=== PATIENT | male | born 1940 | race Caucasian/White ===

== ENCOUNTER 2018-04-20 09:25 | Day surgery (SDC) | payer MEDICARE, BC ==
[~2018-04-20 09:25] MED LIST: Albuterol 0.083% 2.5 MG/3 ML Neb Soln NEB ONE; Bisacodyl 5 MG Tab PO PRN; Cyclobenzaprine 10 MG Tab PO PRN; EPINEPHrine 1 MG/ML SDV ONE; Ketorolac 15 MG/ML SDV IVPUSH PRN; Lactated Ringers 1,000 ML IV SCH; Lidocaine 1%/Sod Bicarbonate in NS 8.4% 1 ML Syringe IDERM PRN; Magnesium Hydroxide 400 MG/5 ML Susp 30 ML Cup PO PRN; Morphine 2 MG/ML Syringe IVPUSH PRN; Naloxone 0.4 MG/ML SDV IVPUSH PRN; Ondansetron 4 MG/2 ML SDV IVPUSH PRN; Ropivacaine 0.5% 5 MG/ML 30 ML SDV ONE; Scopolamine 1.5 MG Transdermal Patch TRDERM ONE; Sennosides 8.6 MG Tab PO PRN; Sodium Chloride 0.9% 10 ML Syringe FLUSH PRN
[2018-04-20] MEDS ORDERED: Albuterol 0.083% 2.5 MG/3 ML Neb Soln NEB ONE (10:21)
[2018-04-20] MEDS ORDERED: Albuterol 0.083% 2.5 MG/3 ML Neb Soln ONE (10:23)
--- NOTE | 2018-04-20 10:52 | PCM.PREANE ---
Preanesthetic Assessment - Procedure Proposed Procedure: L TKR with right knee cortisone injection - Anesthesia/Transfusion/Family Hx Anesthesia History: Prior Anesthesia Without Reaction Type of Anesthesia Reaction: Excessive Nausea/Vomiting Family History of Anesthesia Reaction: No Transfusion History: No Prior Transfusion(s) - Review of Systems General: No Symptoms Pulmonary: Shortness of Breath (with exertion ), Other (patient denies asthma, does not use an inhaler ) Cardiovascular: Other (HTN, Mild aortic stenosis, ) Gastrointestinal: Other (patient denies GERD ) Neurological: No Symptoms Other: Reports: None - Physical Assessment NPO Status Date: 04/20/18 NPO Status Time: 00:00 O2 Sat by Pulse Oximetry: 95 Respiratory Rate: 20 Vital Signs: Last Vital Signs Temp 36.4 C 04/20/18 09:40 Pulse 66 04/20/18 09:40 Resp 20 04/20/18 09:40 BP 154/74 H 04/20/18 09:40 Pulse Ox 95 04/20/18 09:40 Height: 1.6 m Weight: 73.028 kg ASA Class: 3 Mental Status: Alert & Oriented x3 Airway Class: Mallampati = 1 Dentition: Reports: Missing Tooth/Teeth (multiple missing teeth ) Thyro-Mental Finger Breadths: 3 Mouth Opening Finger Breadths: 3 ROM/Head Extension: Full Lungs: Clear to Auscultation, Normal Respiratory Effort Cardiovascular: Regular Rate, Regular Rhythm - Imaging/EKG Impressions: ECHO results from an echo completed in 03-19-16 Mild aortic stenosis with valve area 1.9cm2 (VMax 2.5m/sec) Left ventricular hypertrophy Mild diastolic dysfunction Pt has a noticeable heart murmer but is for the most part asymptomatic. He does not have a more noticeable SOB with exertion within the last couple years. I recommended the patient should follow up with a technical sales representative to keep an eye on his aortic stenosis postoperatively. - Allergies Allergies/Adverse Reactions: Allergies Allergy/AdvReac Type Severity Reaction Status Date / Time No Known Allergies Allergy Verified 04/20/18 11:02 - Blood Blood Available: No Product(s) Available: None - Anesthesia Plan Pre-Op Medication Ordered: None - Acknowledgements Anesthesia Type Planned: Spinal (with post operative adductor canal block ) Pt an Appropriate Candidate for the Planned Anesthesia: Yes Alternatives and Risks of Anesthesia Discussed w Pt/Guardian: Yes Pt/Guardian Understands and Agrees with Anesthesia Plan: Yes PreAnesthesia Questionnaire HEENT History: Reports: None Cardiovascular History: Reports: Heart Murmur, High Cholesterol, Hypertension, Other (See Below) Other Cardiovascular History: aortic stenosis, diastolic dysfunction Respiratory History: Reports: Asthma Gastrointestinal History: Reports: GERD Genitourinary History: Reports: BPH, Other (See Below) Other Genitourinary History: OAB 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: Reports: None Musculoskeletal History: Reports: Osteoarthritis Neurological History: Reports: Neuropathy, Peripheral Psychiatric History: Reports: Other (See Below) Other Psychiatric History: insomnia Endocrine/Metabolic History: Reports: Obesity/BMI 30+ Hematologic History: Reports: None Immunologic History: Reports: None Oncologic (Cancer) History: Reports: Prostate Dermatologic History: Reports: None, Other (See Below) Other Dermatologic History: ingrown toenail, skin lesion to left ear, right toe abcess, paronychia, onchomycosis - Past Surgical History Head Surgeries/Procedures: Reports: None HEENT Surgical History: Reports: None Cardiovascular Surgical History: Reports: None Respiratory Surgical History: Reports: None GI Surgical History: Reports: Colonoscopy Male Surgical History: Reports: Prostatectomy Endocrine Surgical History: Reports: None Musculoskeletal Surgical History: Reports: Arthroscopic Knee, Shoulder Replacement Oncologic Surgical History: Reports: None Dermatological Surgical History: Reports: None - SUBSTANCE USE Smoking Status *Q: Former Smoker Recreational Drug Use History: No - HOME MEDS Home Medications: Home Meds Albuterol Sulfate [Proair Hfa] 2 puff INH Q6H PRN 04/19/18 [History] Aspirin [Adult Low Dose Aspirin EC] 81 mg PO DAILY 04/19/18 [History] Docusate Sodium [Stool Softener] 100 mg PO BID 04/19/18 [History] Ibuprofen 400 mg PO Q6H PRN 04/19/18 [History] Losartan/Hydrochlorothiazide [Losartan-HCTZ 100-25 MG] 1 tab PO DAILY 04/19/18 [ History] Mirabegron [Myrbetriq] 25 mg PO DAILY 04/19/18 [History] Omeprazole 20 mg PO DAILY 04/19/18 [History] Simvastatin 10 mg PO DAILY 04/19/18 [History] amLODIPine Besylate [Amlodipine Besylate] 5 mg PO DAILY 04/19/18 [History] guaiFENesin [Mucinex] 600 mg PO BID PRN 04/19/18 [History] traZODone HCl [Trazodone HCl] 150 mg PO BEDTIME 04/19/18 [History] - CURRENT (IN HOUSE) MEDS Current Meds: Current Medications Aspirin (Ecotrin) 325 mg PO BID DANDRE Bisacodyl (Dulcolax) 5 mg PO DAILY PRN PRN Reason: Constipation Morphine Sulfate 8 mg/Epinephrine HCl 0.3 mg/Cefuroxime Sodium 750 mg/Ketorolac Tromethamine 30 mg/Sodium Chloride 27.9 ml 0 mg .XX ONETIME ONE Stop: 04/20/18 11:01 Cyclobenzaprine HCl (Flexeril) 10 mg PO TID PRN PRN Reason: Spasms Docusate Sodium (Colace) 100 mg PO BID [facility] Lactated Ringer's (Ringers, Lactated) 1,000 mls @ 125 mls/hr IV ASDIRECTED [facility] Stop: 04/20/18 23:00 Last Admin: 04/20/18 09:50 Dose: 125 mls/hr Cefazolin Sodium/Dextrose 2 gm (/ Premix) 50 mls @ 100 mls/hr IV Q8H [facility] Stop: 04/21/18 00:14 Ketorolac Tromethamine (Toradol) 15 mg IVPUSH Q6H PRN PRN Reason: Pain Lidocaine/Sodium Bicarbonate (Buffered Lidocaine 1% In Ns 8.4%) 0.25 ml IDERM ONETIME PRN PRN Reason: Prior to IV Start Stop: 04/20/18 18:00 Magnesium Hydroxide (Milk Of Magnesia) 30 ml PO BID PRN PRN Reason: Constipation Morphine Sulfate (Morphine) 2 mg IVPUSH Q2H PRN PRN Reason: Breakthrough Pain Naloxone HCl (Narcan) 0.1 mg IVPUSH Q5M PRN PRN Reason: Oversedation Ondansetron HCl (Zofran) 4 mg IVPUSH Q6H PRN PRN Reason: Nausea/Vomiting Oxycodone/Acetaminophen (Percocet 325-5 Mg) 1 - 2 tab PO Q4H PRN PRN Reason: Pain Senna (Senna) 8.6 mg PO BID PRN PRN Reason: Constipation Sodium Chloride (Saline Flush) 10 ml FLUSH ASDIRECTED PRN PRN Reason: Keep Vein Open Stop: 04/20/18 18:00 Discontinued Medications Albuterol (Proventil Neb Soln) 2.5 mg NEB ONETIME ONE Stop: 04/20/18 08:01 Last Admin: 04/20/18 10:25 Dose: 2.5 mg Albuterol (Proventil Neb Soln) 2.5 mg NEB ONETIME ONE Stop: 04/20/18 10:22 Albuterol (Proventil Neb Soln) Confirm Administered Dose 2.5 mg .ROUTE .STK-MED ONE Stop: 04/20/18 10:24 Epinephrine HCl (Adrenalin) Confirm Administered Dose 1 mg .ROUTE .STK-MED ONE Stop: 04/20/18 07:24 Ropivacaine (Naropin 0.5%) Confirm Administered Dose 30 ml .ROUTE .STK-MED ONE Stop: 04/20/18 07:24 Scopolamine (Transderm-Scop) 1.5 mg TRDERM ONETIME ONE Stop: 04/20/18 08:01 Last Admin: 04/20/18 10:00 Dose: 1.5 mg
[2018-04-20] MEDS ORDERED: Bupivacaine 0.75% 30 ML SDV ONE (12:12)
[2018-04-20] MEDS ORDERED: Midazolam 1 MG/ML 2 ML SDV ONE (12:13)
[2018-04-20] MEDS ORDERED: ceFAZolin 1 GM Vial ONE (12:23)
[2018-04-20] MEDS ORDERED: Lactated Ringers 1,000 ML ONE (12:41)
[2018-04-20] MEDS: ceFAZolin 1 GM Vial ONE ×2 (12:47→13:09)
[2018-04-20] MEDS: Iodine/Sodium Iodide 2% Tincture 30 ML Bottle ONE ×2 (12:47→13:05)
[2018-04-20] MEDS: Bupivacaine 0.25% 30 ML SDV ONE ×5 (12:48→13:34)
[2018-04-20] MEDS: Morphine 8 MG, EPINEPHrine 0.3 MG, Cefuroxime 750 MG, Ketorolac 30 MG, Sodium Chloride ... ONE ×10 (12:49→13:12)
[2018-04-20] MEDS: Vancomycin 1 GM SDV ONE ×2 (12:49→13:15)
[2018-04-20] MEDS: Triamcinolone Acetonide 40 MG/ML 1 ML MDV ONE ×3 (12:50→13:34)
[2018-04-20] MEDS ORDERED: Propofol 200 MG/20 ML SDV ONE (12:52)
--- NOTE | 2018-04-20 14:21 | PCM.POSTAN ---
POST ANESTHESIA ASSESSMENT - MENTAL STATUS Mental Status: Alert, Oriented - VITAL SIGNS Pulse Rate: 75 SaO2: 95 Resp Rate: 17 Blood Pressure: 129/63 Temperature: 98.2 F - RESPIRATORY Respiratory Status: Respiratory Rate WNL, Airway Patent, O2 Saturation Stable, Supplemental Oxygen - CARDIOVASCULAR CV Status: Pulse Rate WNL, Blood Pressure Stable - GASTROINTESTINAL GI Status: No Symptoms - PAIN Pain Score: 0 - POST OP HYDRATION Hydration Status: Adequate & Stable
--- NOTE | 2018-04-20 14:31 | PCM.PRNOTE ---
- Free Text/Narrative Note: Postoperative regional pain control requested by surgeon.[REGIONAL BLOCK] Pre-op Dx: Lt knee osteoarthritis. Surgical Procedure: Lt Total knee arthroplasty. Postoperative procedure: Lt Adductor canal nerve Block at with U/S guidance. Risks and benefits discussed with the patient preoperatively, including Left leg weakness x 24 hrs., block failure. Permit signed. Patient was under spinal block post surgery, awake and stable. Left upper leg above the knee groin was prepped with Chloraprep x 1 and allowed to dry. Time out performed. Under aseptic technique, the left sartorius muscle and femoral ( saphenous) artery were identified under ultrasound prior to needle insertion. 4 " Stimuplex needle #22 G was inserted under US guidance. Under direct visualization of needle tip the injection of 0.5% Ropivacaine with 150 mcg of epinephrine total of 30 mls in divided doses maintaining negative aspiration was completed without problems. Patient has had tolerated the procedure well. No local anesthetic toxicity was noted. Please see attached Ultrasound images. Beginning time: 13:57 End time: 14:05 Kahlil Porter CRNA
--- NOTE | 2018-04-20 15:00 | CR ---
Left knee: AP and lateral views of the left knee were obtained. Comparison: No previous study. Knee prosthesis is seen. Components are aligned. Soft tissue air is seen. Underlying bony structures are intact. Impression: 1. Satisfactory postop radiographic appearance of recently placed left knee prosthesis. Diagnostic code #1
[2018-04-20] MEDS ORDERED: Albuterol 6.7 GM Inhaler INH PRN (15:32)
[2018-04-20] MEDS ORDERED: Docusate Sodium 100 MG Cap PO SCH ×2 (21:00)
[2018-04-20] MEDS ORDERED: traZODone 50 MG Tab PO SCH (21:00)
[2018-04-20] MEDS ORDERED: Simvastatin 10 MG Tab PO SCH (21:00)
[2018-04-20] MEDS: ceFAZolin 2 GM in Premix Bag 1 BAG IV SCH (21:14)
[2018-04-21] MEDS: ceFAZolin 2 GM in Premix Bag 1 BAG IV SCH ×2 (05:41→11:40)
[2018-04-21] MEDS: Acetaminophen/oxyCODONE 325-5 MG Tab PO PRN ×2 (05:58→11:41)
[2018-04-21] MEDS ORDERED: Omeprazole 20 MG Cap.CR PO SCH (06:00)
[2018-04-21] MEDS ORDERED: Pantoprazole 40 MG Tab.CR PO SCH (07:00)
--- NOTE | 2018-04-21 07:29 | PCM.CONS ---
H&P History of Present Illness - General Date of Service: 04/21/18 Admit Problem/Dx: Admission Diagnosis/Problem Admission Diagnosis/Problem Osteoarthritis of knee Source of Information: Patient, Old Records, Provider, RN, RN Notes Reviewed, Other (Surgical notes ) - History of Present Illness Initial Comments - Free Text/Narative: Julien Cole is a 77 yo male patient of Dr. Jacob who is post-operative day 1 of Left TKA and right cortisone injection. Hospital medicine was consulted for post-operative medical care. At this time he is resting comfortably in bed. Pain is controlled. He denies any chest pain, shortness of breath, palpitations , nausea, or vomiting. He carries a history of: Heart murmur, HLD, HTN, Aortic stenosis, Diastolic dysfunction, asthma, GERD, BPH, OAB, Osteoarthritis, periphreal neuropathy, insomnia, obesity, Hx/o prostate cancer. He is a former smoker. He is a full code. His primary care provider is Dr. Macdonald. - Related Data Allergies/Adverse Reactions: Allergies Allergy/AdvReac Type Severity Reaction Status Date / Time No Known Allergies Allergy Verified 04/20/18 15:21 Home Medications: Home Meds Albuterol Sulfate [Proair Hfa] 2 puff INH Q6H PRN 04/19/18 [History] Docusate Sodium [Stool Softener] 100 mg PO BID 04/19/18 [History] Losartan/Hydrochlorothiazide [Losartan-HCTZ 100-25 MG] 1 tab PO DAILY 04/19/18 [ History] Mirabegron [Myrbetriq] 25 mg PO DAILY 04/19/18 [History] Omeprazole 20 mg PO DAILY 04/19/18 [History] Simvastatin 10 mg PO DAILY 04/19/18 [History] amLODIPine Besylate [Amlodipine Besylate] 5 mg PO DAILY 04/19/18 [History] guaiFENesin [Mucinex] 600 mg PO BID PRN 04/19/18 [History] traZODone HCl [Trazodone HCl] 150 mg PO BEDTIME 04/19/18 [History] Acetaminophen/oxyCODONE [Percocet 325-5 MG] 1 - 2 tab PO Q6H PRN #60 tablet [Rx] Aspirin [Ecotrin] 325 mg PO BID #84 tab.ec 04/21/18 [Rx] Bisacodyl [Dulcolax] 5 mg PO DAILY PRN tablet 04/21/18 [Rx] Magnesium Hydroxide [Milk of Magnesia] 30 ml PO BID PRN cup 04/21/18 [Rx] Sennosides [Senna] 8.6 mg PO BID PRN tablet 04/21/18 [Rx] Past Medical History HEENT History: Reports: None Cardiovascular History: Reports: Heart Murmur, High Cholesterol, Hypertension, Other (See Below) Other Cardiovascular History: aortic stenosis, diastolic dysfunction Respiratory History: Reports: Asthma Gastrointestinal History: Reports: GERD Genitourinary History: Reports: BPH, Other (See Below) Other Genitourinary History: OAB 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: 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 Musculoskeletal History: Reports: Osteoarthritis Neurological History: Reports: Neuropathy, Peripheral Psychiatric History: Reports: Other (See Below) Other Psychiatric History: insomnia Endocrine/Metabolic History: Reports: Obesity/BMI 30+ Hematologic History: Reports: None Immunologic History: Reports: None Oncologic (Cancer) History: Reports: Prostate Dermatologic History: Reports: None, Other (See Below) Other Dermatologic History: ingrown toenail, skin lesion to left ear, right toe abcess, paronychia, onchomycosis - Past Surgical History Head Surgeries/Procedures: Reports: None HEENT Surgical History: Reports: None Cardiovascular Surgical History: Reports: None Respiratory Surgical History: Reports: None GI Surgical History: Reports: Colonoscopy Male Surgical History: Reports: Prostatectomy Endocrine Surgical History: Reports: None Musculoskeletal Surgical History: Reports: Arthroscopic Knee, Shoulder Replacement Oncologic Surgical History: Reports: None Dermatological Surgical History: Reports: None Social & Family History - Tobacco Use Smoking Status *Q: Former Smoker Used Tobacco, but Quit: Yes Month/Year Tobacco Last Used: 1982 - Caffeine Use Caffeine Use: Reports: Coffee, Soda - Recreational Drug Use Recreational Drug Use: No Drug Use in Last 12 Months: No H&P Review of Systems - Review of Systems: Review Of Systems: See Below General: Reports: No Symptoms HEENT: Reports: No Symptoms Pulmonary: Reports: No Symptoms Cardiovascular: Reports: No Symptoms Gastrointestinal: Reports: No Symptoms Genitourinary: Reports: No Symptoms Musculoskeletal: Reports: Joint Pain (left knee) Skin: Reports: No Symptoms Psychiatric: Reports: No Symptoms Neurological: Reports: No Symptoms Hematologic/Lymphatic: Reports: No Symptoms Immunologic: Reports: No Symptoms Exam - Exam Exam: See Below - Vital Signs Vital Signs: Last Vital Signs Temp 98.8 F 04/21/18 04:00 Pulse 86 04/21/18 04:00 Resp 20 04/21/18 04:00 BP 104/72 04/21/18 04:00 Pulse Ox 97 04/21/18 04:00 Weight: 161 lb - Exam Quality Assessment: DVT Prophylaxis. No: Supplemental Oxygen, Urinary Catheter General: Alert, Oriented, Cooperative. No: Mild Distress HEENT: Conjunctiva Clear, EACs Clear, EOMI, Hearing Intact, Mucosa Moist & [place] , Nares Patent, Normal Nasal Septum, Posterior Pharynx Clear, PERRLA Neck: Supple, Trachea Midline Lungs: Clear to Auscultation, Normal Respiratory Effort Cardiovascular: Regular Rate, Regular Rhythm, Systolic Murmur GI/Abdominal Exam: Normal Bowel Sounds, Soft, Non-Tender, No Distention, No Abnormal Bruit (Male) Exam: Deferred Rectal (Males) Exam: Deferred Back Exam: Normal Inspection, Full Range of Motion Extremities: No Pedal Edema, Normal Capillary Refill, Leg Pain, Limited Range of Motion, Other (Bandage in place on left knee. Bandage is dry and intact. Cooling pack in place ) Peripheral Pulses: 2+: Radial (L), Radial (R), Dorsalis Pedis (L), Dorsalis Pedis (R) Skin: Warm, Dry, Intact Neurological: Cranial Nerves Intact (grossly) Neuro Extensive - Mental Status: Alert, Oriented x3, Normal Mood/Affect, Normal Cognition, Memory Intact - Patient Data Lab Results Last 24 hrs: Laboratory Results - last 24 hr 04/21/18 04/21/18 Range/Units 06:15 06:15 WBC 8.02 (4.23-9.07) K/mm3 RBC 4.44 L (4.63-6.08) M/mm3 Hgb 13.1 L (13.7-17.5) gm/L Hct 39.6 L (40.1-51.0) % MCV 89.2 (79.0-92.2) fl MCH 29.5 (25.7-32.2) pg MCHC 33.1 (32.2-35.5) g/dl RDW Std Deviation 43.1 (35.1-43.9) fL Plt Count 209 (163-337) K/mm3 MPV 10.4 (9.4-12.3) fl Sodium 140 (136-145) mEq/L Potassium 3.7 (3.5-5.1) mEq/L Chloride 104 (98-107) mEq/L Carbon Dioxide 26 (21-32) mEq/L Anion Gap 13.7 (5-15) BUN 18 (7-18) mg/dL Creatinine 0.9 (0.7-1.3) mg/dL Est Cr Clr Drug Dosing 56.20 mL/min Estimated GFR (MDRD) > 60 (>60) mL/min BUN/Creatinine Ratio 20.0 H (14-18) Glucose 118 H (83-115) mg/dL Calcium 8.2 L (8.5-10.1) mg/dL Total Bilirubin 0.7 (0.2-1.0) mg/dL AST 21 (15-37) U/L ALT 21 (16-63) U/L Alkaline Phosphatase 47 (46-116) U/L Total Protein 5.7 L (6.4-8.2) g/dl Albumin 3.0 L (3.4-5.0) g/dl Globulin 2.7 gm/dL Albumin/Globulin Ratio 1.1 (1-2) Result Diagrams: 04/21/18 06:15 04/21/18 06:15 Consult PN Assessment/Plan POD#: 1 (1) S/P total knee arthroplasty SNOMED Code(s): 5292876365468, 855440550, 1936960937859 Code(s): Z96.659 - PRESENCE OF UNSPECIFIED ARTIFICIAL KNEE JOINT Priority: High Current Visit: Yes Qualifiers: Laterality: left Qualified Code(s): Z96.652 - Presence of left artificial knee joint (2) Osteoarthritis SNOMED Code(s): 556167500 Code(s): M19.90 - UNSPECIFIED OSTEOARTHRITIS, UNSPECIFIED SITE Priority: High Current Visit: Yes Qualifiers: Osteoarthritis location: knee Osteoarthritis type: primary Laterality: bilateral Qualified Code(s): M17.0 - Bilateral primary osteoarthritis of knee (3) Osteopenia SNOMED Code(s): 742809160 Code(s): M85.80 - OTH DISRD OF BONE DENSITY AND STRUCTURE, UNSPECIFIED SITE Priority: High Current Visit: Yes Qualifiers: Osteopenia location: unspecified Qualified Code(s): M85.80 - Other specified disorders of bone density and structure, unspecified site (4) HTN (hypertension) SNOMED Code(s): 20390826 Code(s): I10 - ESSENTIAL (PRIMARY) HYPERTENSION Priority: Medium Current Visit: No Qualifiers: Hypertension type: unspecified Qualified Code(s): I10 - Essential (primary ) hypertension (5) Aortic stenosis SNOMED Code(s): 00883995 Code(s): I35.0 - NONRHEUMATIC AORTIC (VALVE) STENOSIS Priority: Medium Current Visit: No Qualifiers: Cardiac valve disease etiology: etiology unspecified Qualified Code(s): I35.0 - Nonrheumatic aortic (valve) stenosis (6) Neuropathy SNOMED Code(s): 374237500 Code(s): G62.9 - POLYNEUROPATHY, UNSPECIFIED Priority: Medium Current Visit: No (7) S/P prostatectomy SNOMED Code(s): 125139483, 64568047, 850509293 Code(s): Z90.79 - ACQUIRED ABSENCE OF OTHER GENITAL ORGAN(S) Priority: Medium Current Visit: No (8) Insomnia SNOMED Code(s): 305436347 Code(s): G47.00 - INSOMNIA, UNSPECIFIED Priority: Medium Current Visit: No Qualifiers: Insomnia type: unspecified Qualified Code(s): G47.00 - Insomnia, unspecified (9) History of prostate cancer SNOMED Code(s): 234877363 Code(s): Z85.46 - PERSONAL HISTORY OF MALIGNANT NEOPLASM OF PROSTATE Priority: Low Current Visit: No (10) GERD (gastroesophageal reflux disease) SNOMED Code(s): 456694813 Code(s): K21.9 - GASTRO-ESOPHAGEAL REFLUX DISEASE WITHOUT ESOPHAGITIS Priority: Medium Current Visit: No Qualifiers: Esophagitis presence: esophagitis presence not specified Qualified Code(s) : K21.9 - Gastro-esophageal reflux disease without esophagitis (11) HLD (hyperlipidemia) SNOMED Code(s): 97345626 Code(s): E78.5 - HYPERLIPIDEMIA, UNSPECIFIED Priority: Low Current Visit : No Qualifiers: Hyperlipidemia type: unspecified Qualified Code(s): E78.5 - Hyperlipidemia , unspecified (12) Asthma SNOMED Code(s): 238326955 Code(s): J45.909 - UNSPECIFIED ASTHMA, UNCOMPLICATED Priority: Medium Current Visit: No Qualifiers: Asthma severity: unspecified severity Asthma persistence: unspecified Asthma complication type: unspecified Qualified Code(s): J45.909 - Unspecified asthma, uncomplicated (13) OAB (overactive bladder) SNOMED Code(s): 294341540 Code(s): N32.81 - OVERACTIVE BLADDER Priority: Medium Current Visit: No Problem List Initiated/Reviewed/Updated: Yes Plan: I/P: Acute: S/P Left total knee arthroplasty - post-operative day 1 -DVT prophylaxis and pain management per primary care team -PT/OT -IS/RT -Monitor oxygen saturation -Titrate oxygen as needed -Vital signs stable -Monitor labs -Pre-operative Hgb was 14.6, now 13.1 -Pre-operative GFR was 62, now >60 Osteoarthritis of bilateral knees -Pain management per primary care team s/p right knee cortisone injection -Management per primary team Chronic: Heart murmur HLD HTN Aortic stenosis Diastolic dysfunction asthma GERD BPH OAB Osteoarthritis periphreal neuropathy insomnia obesity Hx/o prostate cancer Hx/o sever post-operative nausea and vomiting Plan: CM for discharge planning GI prophylaxis Home medications as indicated Other orders as listed above Routine AM labs He is a full code. His PCP is Dr. Macdonald From a hospitalist standpoint Julien is doing quite well. He is off oxygen and has been urinating. He has been working with PT/OT. Pain is controlled and he has not had any nausea. Labs and vitals look good. He is clear for discharge pending primary care team and PT/OT approval. Thank you for allowing us to participate in the care of this patient!! Requesting Provider: Dr. Jacob Date Consult Requested: 04/20/18 Reason for Consult: Post operative medical care Patient History Reviewed: Yes Admission H&P Reviewed: Yes Time Spent (in minutes): 40
--- NOTE | 2018-04-21 08:30 | PCM.SURGPN ---
- General Info Date of Service: 04/21/18 POD#: 1 Functional Status: Reports: Pain Controlled, Tolerating Diet, Ambulating, Urinating, Incentive Spirometry (The states he is pleased that he had no nausea with procedure. He feels prepared for discharge to home.) - Patient Data Vitals - Most Recent: Last Vital Signs Temp 98.8 F 04/21/18 04:00 Pulse 86 04/21/18 04:00 Resp 20 04/21/18 04:00 BP 104/72 04/21/18 04:00 Pulse Ox 97 04/21/18 04:00 Weight - Most Recent: 161 lb I&O - Last 24 Hours: Intake & Output 04/20/18 04/21/18 04/21/18 22:59 06:59 14:59 Intake Total 290 350 Output Total 225 600 Balance 65 -250 Lab Results Last 24 Hrs: Laboratory Results - last 24 hr 04/21/18 04/21/18 Range/Units 06:15 06:15 WBC 8.02 (4.23-9.07) K/mm3 RBC 4.44 L (4.63-6.08) M/mm3 Hgb 13.1 L (13.7-17.5) gm/L Hct 39.6 L (40.1-51.0) % MCV 89.2 (79.0-92.2) fl MCH 29.5 (25.7-32.2) pg MCHC 33.1 (32.2-35.5) g/dl RDW Std Deviation 43.1 (35.1-43.9) fL Plt Count 209 (163-337) K/mm3 MPV 10.4 (9.4-12.3) fl Sodium 140 (136-145) mEq/L Potassium 3.7 (3.5-5.1) mEq/L Chloride 104 (98-107) mEq/L Carbon Dioxide 26 (21-32) mEq/L Anion Gap 13.7 (5-15) BUN 18 (7-18) mg/dL Creatinine 0.9 (0.7-1.3) mg/dL Est Cr Clr Drug Dosing 56.20 mL/min Estimated GFR (MDRD) > 60 (>60) mL/min BUN/Creatinine Ratio 20.0 H (14-18) Glucose 118 H (83-115) mg/dL Calcium 8.2 L (8.5-10.1) mg/dL Total Bilirubin 0.7 (0.2-1.0) mg/dL AST 21 (15-37) U/L ALT 21 (16-63) U/L Alkaline Phosphatase 47 (46-116) U/L Total Protein 5.7 L (6.4-8.2) g/dl Albumin 3.0 L (3.4-5.0) g/dl Globulin 2.7 gm/dL Albumin/Globulin Ratio 1.1 (1-2) Med Orders - Current: Current Medications Albuterol (Proventil Hfa) 0 gm INH Q6H PRN PRN Reason: asthma Amlodipine Besylate (Norvasc) 5 mg PO DAILY [facility] Aspirin (Ecotrin) 325 mg PO BID [facility] Bisacodyl (Dulcolax) 5 mg PO DAILY PRN PRN Reason: Constipation Cyclobenzaprine HCl (Flexeril) 10 mg PO TID PRN PRN Reason: Spasms Hydrochlorothiazide (Hydrochlorothiazide) 25 mg PO DAILY [facility] Cefazolin Sodium/Dextrose 2 gm (/ Premix) 50 mls @ 100 mls/hr IV Q8H [facility] Stop: 04/21/18 12:59 Last Admin: 04/21/18 05:41 Dose: 100 mls/hr Ketorolac Tromethamine (Toradol) 15 mg IVPUSH Q6H PRN PRN Reason: Pain Last Admin: 04/20/18 21:11 Dose: 15 mg Losartan Potassium (Cozaar) 100 mg PO DAILY [facility] Magnesium Hydroxide (Milk Of Magnesia) 30 ml PO BID PRN PRN Reason: Constipation Morphine Sulfate (Morphine) 2 mg IVPUSH Q2H PRN PRN Reason: Breakthrough Pain Naloxone HCl (Narcan) 0.1 mg IVPUSH Q5M PRN PRN Reason: Oversedation Ondansetron HCl (Zofran) 4 mg IVPUSH Q6H PRN PRN Reason: Nausea/Vomiting Oxycodone/Acetaminophen (Percocet 325-5 Mg) 1 - 2 tab PO Q4H PRN PRN Reason: Pain Last Admin: 04/21/18 05:58 Dose: 2 tab Pantoprazole Sodium (Protonix) 40 mg PO DAILY@0700 [facility] Last Admin: 04/21/18 07:44 Dose: 40 mg Mirabegron 25 Mg 0 each PO DAILY [facility] Senna (Senna) 8.6 mg PO BID PRN PRN Reason: Constipation Simvastatin (Zocor) 10 mg PO BEDTIME [facility] Last Admin: 04/20/18 21:15 Dose: 10 mg Trazodone HCl (Trazodone) 150 mg PO BEDTIME [facility] Last Admin: 04/20/18 21:15 Dose: 150 mg Discontinued Medications Albuterol (Proventil Neb Soln) 2.5 mg NEB ONETIME ONE Stop: 04/20/18 08:01 Last Admin: 04/20/18 10:25 Dose: 2.5 mg Albuterol (Proventil Neb Soln) 2.5 mg NEB ONETIME ONE Stop: 04/20/18 10:22 Last Admin: 04/20/18 19:30 Dose: Not Given Albuterol (Proventil Neb Soln) Confirm Administered Dose 2.5 mg .ROUTE .STK-MED ONE Stop: 04/20/18 10:24 Last Admin: 04/20/18 18:53 Dose: Not Given Bupivacaine HCl (Marcaine 0.25%) Confirm Administered Dose 30 ml .ROUTE .STK- MED ONE Stop: 04/20/18 10:38 Last Admin: 04/20/18 13:34 Dose: 4 ml Bupivacaine HCl (Sensorcaine-Mpf 0.75%) Confirm Administered Dose 30 ml .ROUTE .STK-MED ONE Stop: 04/20/18 12:13 Cefazolin Sodium (Ancef) Confirm Administered Dose 2 gm .ROUTE .STK-MED ONE Stop: 04/20/18 10:37 Last Admin: 04/20/18 13:09 Dose: 2 gm Cefazolin Sodium (Ancef) Confirm Administered Dose 2 gm .ROUTE .STK-MED ONE Stop: 04/20/18 12:24 Morphine Sulfate 8 mg/Epinephrine HCl 0.3 mg/Cefuroxime Sodium 750 mg/Ketorolac Tromethamine 30 mg/Sodium Chloride 27.9 ml 0 mg .XX ONETIME ONE Stop: 04/20/18 11:01 Last Admin: 04/20/18 13:12 Dose: 788.3 mg Docusate Sodium (Colace) 100 mg PO BID [facility] Docusate Sodium (Colace) 100 mg PO BID [facility] Epinephrine HCl (Adrenalin) Confirm Administered Dose 1 mg .ROUTE .STK-MED ONE Stop: 04/20/18 07:24 Lactated Ringer's (Ringers, Lactated) 1,000 mls @ 125 mls/hr IV ASDIRECTED [facility] Stop: 04/20/18 23:00 Last Admin: 04/20/18 09:50 Dose: 125 mls/hr Lidocaine HCl (Xylocaine-Mpf 1%) Confirm Administered Dose 5 mls @ as directed .ROUTE .STK-MED ONE Stop: 04/20/18 12:13 Lactated Ringer's (Ringers, Lactated) Confirm Administered Dose 1,000 mls @ as directed .ROUTE .STK-MED ONE Stop: 04/20/18 12:42 Iodine (Iodine 2% Mild Tincture) Confirm Administered Dose 30 ml .ROUTE .STK- MED ONE Stop: 04/20/18 10:37 Last Admin: 04/20/18 13:05 Dose: 18 ml Lidocaine/Sodium Bicarbonate (Buffered Lidocaine 1% In Ns 8.4%) 0.25 ml IDERM ONETIME PRN PRN Reason: Prior to IV Start Stop: 04/20/18 18:00 Midazolam HCl (Versed 1 Mg/Ml) Confirm Administered Dose 2 mg .ROUTE .STK-MED ONE Stop: 04/20/18 12:14 [facility] ([facility]ole) [facility] Last Admin: 04/21/18 07:45 Dose: Not Given Propofol (Diprivan 20 Ml) Confirm Administered Dose 200 mg .ROUTE .STK-MED ONE Stop: 04/20/18 12:53 Ropivacaine (Naropin 0.5%) Confirm Administered Dose 30 ml .ROUTE .STK-MED ONE Stop: 04/20/18 07:24 Scopolamine (Transderm-Scop) 1.5 mg TRDERM ONETIME ONE Stop: 04/20/18 08:01 Last Admin: 04/20/18 10:00 Dose: 1.5 mg Sodium Chloride (Saline Flush) 10 ml FLUSH ASDIRECTED PRN PRN Reason: Keep Vein Open Stop: 04/20/18 18:00 Tranexamic Acid (Cyklokapron) Confirm Administered Dose 1,000 mg .ROUTE .STK- MED ONE Stop: 04/20/18 10:37 Last Admin: 04/20/18 13:19 Dose: 1,000 mg Triamcinolone Acetonide (Kenalog-40) Confirm Administered Dose 80 mg .ROUTE .STK -MED ONE Stop: 04/20/18 10:47 Last Admin: 04/20/18 13:34 Dose: 80 mg Vancomycin HCl (Vancomycin) Confirm Administered Dose 1 gm .ROUTE .STK-MED ONE Stop: 04/20/18 10:37 Last Admin: 04/20/18 13:15 Dose: 1 gm - Exam Wound/Incisions: Dressing Dry and Intact General: Alert, Cooperative, No Acute Distress Lungs: Normal Respiratory Effort Extremities: Other (NVS intact for LLE. Vazquez's negative. ) - Problem List Review Problem List Initiated/Reviewed/Updated: Yes - My Orders Last 24 Hours: Active Orders 24 hr Category Date Time Status Patient Status [ADT] Routine ADT 04/20/18 07:46 Active Ambulate [RC] 09,,17 Care 04/20/18 07:46 Active May Shower [RC] ASDIRECTED Care 04/20/18 07:46 Active Notify Provider Consults [RC] ASDIRECTED Care 04/20/18 07:52 Active Oxygen Therapy [RC] PRN Care 04/20/18 07:46 Active RT Incentive Spirometry [RC] Q1HWA Care 04/20/18 07:45 Active Ready for Discharge [RC] PER UNIT ROUTINE Care 04/21/18 07:52 Active Up to Chair [RC] 09,13 Care 04/20/18 07:46 Active Vital Signs [RC] Q4HR Care 04/20/18 07:46 Active Consult to Physician [CONS] Routine Cons 04/20/18 07:46 Active OT Evaluation and Treatment [CONS] Routine Cons 04/20/18 07:45 Active PT Evaluation and Treatment [CONS] Routine Cons 04/20/18 07:45 Active Regular Diet [DIET] Diet 04/20/18 Lunch Active Acetaminophen/oxyCODONE [Percocet 325-5 MG] Med 04/20/18 07:45 Active 1 - 2 tab PO Q4H PRN Albuterol [Proventil HFA] Med 04/20/18 15:32 Active 0 gm INH Q6H PRN Aspirin [Ecotrin] Med 04/21/18 09:00 Active 325 mg PO BID Bisacodyl [Dulcolax] Med 04/20/18 07:46 Active 5 mg PO DAILY PRN Cyclobenzaprine [Flexeril] Med 04/20/18 07:45 Active 10 mg PO TID PRN Ketorolac [Toradol] Med 04/20/18 07:45 Active 15 mg IVPUSH Q6H PRN Losartan [Cozaar] Med 04/21/18 09:00 Active 100 mg PO DAILY Magnesium Hydroxide [Milk of Magnesia] Med 04/20/18 07:46 Active 30 ml PO BID PRN Morphine Med 04/20/18 07:46 Active 2 mg IVPUSH Q2H PRN Naloxone [Narcan] Med 04/20/18 07:46 Active 0.1 mg IVPUSH Q5M PRN Ondansetron [Zofran] Med 04/20/18 07:46 Active 4 mg IVPUSH Q6H PRN Pantoprazole [ProTONIX] Med 04/21/18 07:00 Active 40 mg PO DAILY@0700 Patient's Own Medication [Ptom] Med 04/21/18 09:00 Active 0 each PO DAILY Sennosides [Senna] Med 04/20/18 07:46 Active 8.6 mg PO BID PRN Simvastatin [Zocor] Med 04/20/18 21:00 Active 10 mg PO BEDTIME amLODIPine [Norvasc] Med 04/21/18 09:00 Active 5 mg PO DAILY ceFAZolin [Ancef] 2 gm Med 04/20/18 20:30 Active Premix Bag 1 bag IV Q8H hydroCHLOROthiazide Med 04/21/18 09:00 Active 25 mg PO DAILY traZODone Med 04/20/18 21:00 Active 150 mg PO BEDTIME Antiembolic Hose [OM.PC] Per Unit Routine Oth 04/20/18 07:48 Ordered Ice Therapy [OM.PC] Per Unit Routine Oth 04/20/18 07:47 Ordered Sequential Compression Device [OM.PC] Per Unit Routine Oth 04/20/18 07:45 Ordered Resuscitation Status Routine Resus Stat 04/20/18 07:46 Ordered Medication Orders Albuterol (Proventil Hfa) 0 gm INH Q6H PRN PRN Reason: asthma Amlodipine Besylate (Norvasc) 5 mg PO DAILY [facility] Aspirin (Ecotrin) 325 mg PO BID [facility] Bisacodyl (Dulcolax) 5 mg PO DAILY PRN PRN Reason: Constipation Cyclobenzaprine HCl (Flexeril) 10 mg PO TID PRN PRN Reason: Spasms Hydrochlorothiazide (Hydrochlorothiazide) 25 mg PO DAILY [facility] Cefazolin Sodium/Dextrose 2 gm (/ Premix) 50 mls @ 100 mls/hr IV Q8H [facility] Stop: 04/21/18 12:59 Last Admin: 04/21/18 05:41 Dose: 100 mls/hr Infusion: 04/20/18 21:44 Dose: 100 mls/hr Admin: 04/20/18 21:14 Dose: 100 mls/hr Ketorolac Tromethamine (Toradol) 15 mg IVPUSH Q6H PRN PRN Reason: Pain Last Admin: 04/20/18 21:11 Dose: 15 mg Losartan Potassium (Cozaar) 100 mg PO DAILY [facility] Magnesium Hydroxide (Milk Of Magnesia) 30 ml PO BID PRN PRN Reason: Constipation Morphine Sulfate (Morphine) 2 mg IVPUSH Q2H PRN PRN Reason: Breakthrough Pain Naloxone HCl (Narcan) 0.1 mg IVPUSH Q5M PRN PRN Reason: Oversedation Ondansetron HCl (Zofran) 4 mg IVPUSH Q6H PRN PRN Reason: Nausea/Vomiting Oxycodone/Acetaminophen (Percocet 325-5 Mg) 1 - 2 tab PO Q4H PRN PRN Reason: Pain Last Admin: 04/21/18 05:58 Dose: 2 tab Pantoprazole Sodium (Protonix) 40 mg PO DAILY@0700 [facility] Last Admin: 04/21/18 07:44 Dose: 40 mg Mirabegron 25 Mg 0 each PO DAILY [facility] Senna (Senna) 8.6 mg PO BID PRN PRN Reason: Constipation Simvastatin (Zocor) 10 mg PO BEDTIME [facility] Last Admin: 04/20/18 21:15 Dose: 10 mg Trazodone HCl (Trazodone) 150 mg PO BEDTIME [facility] Last Admin: 04/20/18 21:15 Dose: 150 mg - Assessment Assessment (Free Text/Narrative):: POD#1 - left TKA - Plan Plan (Free Text/Narrative):: 1. Hgb 13.1. 2. ASA BID, frequent mobility, TEDs. 3. Discharge to home today. The pt will have the assistance of his family members. 4. Outpatient therapy. The pt's case was discussed with Dr. Jacob.
[2018-04-21] MEDS ORDERED: Hydrochlorothiazide 25 MG Tab PO SCH (09:00)
[2018-04-21] MEDS ORDERED: amLODIPine 5 MG Tab PO SCH (09:00)
[2018-04-21] MEDS ORDERED: Losartan 100 MG Tab PO SCH (09:00)
[2018-04-21] MEDS ORDERED: Aspirin 325 MG Tab.EC PO SCH (09:00)
--- NOTE | 2018-04-27 11:12 | PCM.OPNOTE ---
- General Post-Op/Procedure Note Date of Surgery/Procedure: 04/20/18 Operative Procedure(s): left total knee arthroplasty Pre Op Diagnosis: left knee osteoarthrosis Post-Op Diagnosis: Same Anesthesia Technique: Local, MAC, Spinal Primary Surgeon: Colten Jacob Anesthesia Provider: Kahlil Porter Tool Maintenance Worker: Laverne Boston Tool Maintenance Worker: Maricarmen Winkler in mLs: 5 Complications: None Condition: Good
--- NOTE | 2018-04-27 11:40 | OR ---
DATE OF OPERATION: 04/20/2018 SURGEON: Colten Jacob MD OPERATION PERFORMED: Left total knee arthroplasty with right knee corticosteroid injection. PREOPERATIVE DIAGNOSIS: Bilateral knee osteoarthrosis. POSTOPERATIVE DIAGNOSIS: Bilateral knee osteoarthrosis. ANESTHESIA: Local MAC with spinal. ANESTHESIA PROVIDER: Kahlil Porter. ASSISTANTS: 1. Laverne Boston PA-C. 2. Maricarmen Winkler LPN. ESTIMATED BLOOD LOSS: 5 mL. COMPLICATIONS: None. CONDITION: Stable. IMPLANTS: 1. [place] size 5 cemented PS femur. 2. Angela size 5 cemented [place] tibial baseplate. 3. Angela size 5 9-mm PS X3 polyethylene. 4. [place] size 32 x 10 mm cemented patella. DESCRIPTION OF PROCEDURE: The patient was identified in the preop holding area. Proper site was marked and identified by the surgeon. The patient was taken back to the operating theater. After adequate anesthesia, the patient's left lower extremity had a nonsterile tourniquet applied and it was then sterilely prepped and draped in the usual sterile fashion. OR timeout was performed. The patient received 2 grams IV Ancef. At this time, left lower extremity was exsanguinated. Tourniquet was insufflated to 300 mmHg. Standard medial parapatellar incision was made. Medial parapatellar arthrotomy was created. Deep fibers of the MCL were raised and anterior fat pad was resected. At this time, attention was turned to the patella. Patella measured a 24, it was resected to a 14 for a 32 x 10 mm patella. Drill holes were then drilled and found to be in adequate position. The drill was then drilled in the distal femur and the intramedullary distal femoral cutting guide was then placed. 8 mm was resected off the distal femur and was found to be an adequate resection. Sizing guide was placed. It was found to be a [place] size 5 cemented PS femur that was shown on the implant record at the beginning of this dictation. The drill holes were drilled for the epicondylar axis using [place] line and epicondyles as reference. At this time, the 4-in-1 cutting block was placed. An anterior posterior and anterior and posterior chamfer cuts were then completed. The correct size box cut was then placed and the box cut was completed and found to be an adequate resection. Attention was turned to the tibia. The posterior medial lateral retractors were placed. The extramedullary tibial guide was placed. It was placed in the old footprint of the ACL. It was aligned with the center of the ankle and 0 degrees of slope, 9 mm was then resected off the unaffected lateral side. There was found to be an acceptable reduction. At this time, posterior osteophytes were removed along with medial and lateral meniscus. A trial implant was placed with a correct sized tibia that was mentioned at the beginning of the dictation. A [place] size 5 9-mm PS X3 polyethylene was then placed. The patient's knee was brought through range of motion. The patella was tracking centrally and was stable to varus and valgus stress. Alignment was found to be roughly at 0 degrees. At this time, cement was mixed on the back table. The tibia was stamped and drilled in proper rotation. All cut surfaces were irrigated with pulse lavage irrigation with Ancef and then completely dried. Once this was completed, then the cement was ready. The universal tibial base plate was cemented in place. Next, the Angela size 5 cemented PS femur was cemented into place and the Angela size 5 9-mm PS X3 polyethylene was placed. The patient's knee was brought into full extension. Excess cement was removed. The patella was then cemented in place at this time. Tourniquet was deflated. One liter dilute Betadine solution was irrigated through the knee along with 3 L of pulse lavage irrigation with Ancef. Periarticular injection was then completed. The patient's knee was brought through a range of motion. Once the cement had time to set up and it was found to be stable to varus valgus stress, the patella was tracking centrally with full range of motion. At this time, a #2 barbed suture was used for closure of the medial parapatellar arthrotomy. Topical tranexamic acid was placed. 2-0 Vicryl was used subcutaneously, a running 3-0 Monocryl was used subcuticularly. The patient tolerated the procedure well and was sent to the PACU in stable condition. After this procedure was completed, a corticosteroid injection was done to the right knee. Under sterile technique, 2 mL of 40 mg Kenalog and 4 mL of 0.25% Marcaine were injected to the right knee. MMODAL /[id number]
== END 2018-04-21 13:20 | disposition home or self-care (01) ==
LOC: JD.SDS 09:25 → JD.MS 09:29 → JD.SDS 04-21 13:20
PROVIDERS: ATTEND Orthopaedic Surgery
DX: M17.0 Bilateral primary osteoarthritis of knee (principal); I10 Essential (primary) hypertension; J45.20 Mild intermittent asthma, uncomplicated; E66.9 Obesity, unspecified; Z68.30 Body mass index [BMI] 30.0-30.9, adult; E78.5 Hyperlipidemia, unspecified; K21.9 Gastro-esophageal reflux disease without esophagitis; I35.0 Nonrheumatic aortic (valve) stenosis; G62.9 Polyneuropathy, unspecified; G47.00 Insomnia, unspecified; N32.81 Overactive bladder; M85.80 Other specified disorders of bone density and structure, unspecified site; Z87.891 Personal history of nicotine dependence; Z79.82 Long term (current) use of aspirin; Z79.899 Other long term (current) drug therapy
CPT/HCPCS: 20610; 27447; 36415; 73560; 80053; 85027; 94640; 97110; 97116; 97161; 97165; 97530; 97535; A9270; C1713; C1776; J0171; J0690; J0697; J1885; J2250; J2270; J2704; J2795; J3301; J3370; J3490; J7120; 01402; 64450

== ENCOUNTER 2024-08-15 10:12 | Day surgery (SDC) | payer MEDICARE, BC ==
[~2024-08-15 10:12] MED LIST changes: -Albuterol 0.083% 2.5 MG/3 ML Neb Soln NEB ONE; -Bisacodyl 5 MG Tab PO PRN; -Cyclobenzaprine 10 MG Tab PO PRN; +Dexamethasone 4 MG/ML 5 ML MDV ONE; -EPINEPHrine 1 MG/ML SDV ONE; +Famotidine 20 MG/2 ML SDV IVPUSH SCH; -Ketorolac 15 MG/ML SDV IVPUSH PRN; -Lactated Ringers 1,000 ML IV SCH; +Lidocaine 1% 5 ML VIAL ONE; -Lidocaine 1%/Sod Bicarbonate in NS 8.4% 1 ML Syringe IDERM PRN; -Magnesium Hydroxide 400 MG/5 ML Susp 30 ML Cup PO PRN; -Morphine 2 MG/ML Syringe IVPUSH PRN; -Naloxone 0.4 MG/ML SDV IVPUSH PRN; -Ondansetron 4 MG/2 ML SDV IVPUSH PRN; +Ondansetron 4 MG/2 ML SDV ONE; +Propofol 200 MG/20 ML SDV ONE; -Scopolamine 1.5 MG Transdermal Patch TRDERM ONE; -Sennosides 8.6 MG Tab PO PRN; +Sodium Chloride 0.9% 10 ML Syringe FLUSH SCH; +ceFAZolin 2 GM Vial ONE; +fentaNYL 100 MCG/2 ML SDV ONE
[2024-08-15] MEDS ORDERED: oxyCODONE 5 MG Tab PO PRN (10:36)
[2024-08-15] MEDS: Lactated Ringers 1,000 ML IV SCH (10:50)
[2024-08-15] MEDS ORDERED: Acetaminophen/HYDROcodone 325-5 MG Tab PO PRN (11:07)
[2024-08-15] MEDS: Scopalamine 1mg/3day Transdermal Patch TOP SCH (11:17)
[2024-08-15] MEDS ORDERED: Ondansetron 4 MG/2 ML SDV ONE (11:51)
[2024-08-15] MEDS ORDERED: Ketorolac 30 MG/ML SDV ONE (12:56)
[2024-08-15] MEDS ORDERED: fentaNYL 100 MCG/2 ML SDV IVPUSH PRN (13:24)
[2024-08-15] MEDS ORDERED: HYDROmorphone 0.5 MG/0.5 ML Syringe IVPUSH PRN (13:24)
[2024-08-15] MEDS ORDERED: Labetalol 100 MG/20 ML MDV ONE (13:32)
[2024-08-15] MEDS ORDERED: Lactated Ringers 1,000 ML ONE (13:35)
[2024-08-15] MEDS: VANCOmycin 1 GM SDV ONE (13:56)
[2024-08-15] MEDS: Tranexamic Acid 1,000 MG/10 ML Vial ONE (13:56)
[2024-08-15] MEDS: Ondansetron 4 MG/2 ML SDV IVPUSH PRN (15:25)
[2024-08-15] MEDS: Acetaminophen/HYDROcodone 325-5 MG Tab PO PRN (15:36)
== END 2024-08-15 17:10 | disposition home or self-care (01) ==
LOC: JD.SDS 10:12
PROVIDERS: ATTEND Orthopaedic Surgery
DX: M19.012 Primary osteoarthritis, left shoulder (principal); E78.5 Hyperlipidemia, unspecified; K21.9 Gastro-esophageal reflux disease without esophagitis; E03.9 Hypothyroidism, unspecified; J45.20 Mild intermittent asthma, uncomplicated; Z79.82 Long term (current) use of aspirin; Z79.899 Other long term (current) drug therapy
CPT/HCPCS: 23472; 64415; 76000; 97116; 97161; A9270; J0690; J1100; J1885; J1920; J2405; J2704; J2795; J3010; J7120; J3490